=== PATIENT | male | born 1980 ===

== ENCOUNTER 2024-06-16 10:21 | Outpatient (CLI) | payer OTHER | END 2024-06-16 10:22 | disposition home or self-care (01) | LOC: BICMRI 10:21 | PROVIDERS: ATTEND Internal Medicine Geriatric Medicine | DX: Z01.89 Encounter for other specified special examinations (principal); M25.512 Pain in left shoulder; M75.101 Unspecified rotator cuff tear or rupture of right shoulder, not specified as traumatic; S43.401A Unspecified sprain of right shoulder joint, initial encounter; M19.011 Primary osteoarthritis, right shoulder; M65.88 Other synovitis and tenosynovitis, other site ==